=== PATIENT | male | born 1960 | race Native Hawaiian/Other Pacific Islander ===

== ENCOUNTER 2022-03-19 12:04 | Outpatient (CLI) | payer OTHER | END 2022-03-19 19:03 | disposition home or self-care (01) | LOC: LABW 12:04 | PROVIDERS: ATTEND Psychiatry & Neurology Neurology | DX: R41.82 Altered mental status, unspecified (principal) | CPT/HCPCS: 36415; 82607; 82746; 84443; 85652; 86038 ==

== ENCOUNTER 2022-03-23 15:23 | Outpatient (CLI) | payer OTHER | END 2022-03-23 19:00 | disposition home or self-care (01) | LOC: MRI 15:23 | PROVIDERS: ATTEND Psychiatry & Neurology Neurology | DX: R41.82 Altered mental status, unspecified (principal) ==

== ENCOUNTER 2022-04-08 08:52 | Outpatient (CLI) | payer OTHER | END 2022-04-08 19:01 | disposition home or self-care (01) | LOC: RESP 08:52 | PROVIDERS: ATTEND Nurse Practitioner Adult Health | DX: I63.9 Cerebral infarction, unspecified (principal) | CPT/HCPCS: 36415; 82565; 84520 ==